=== PATIENT | female | born 1980 | race Caucasian/White ===

== ENCOUNTER → 2019-08-15 13:41 | Outpatient (CLI) | payer OTHER, SELFPAY ==
--- NOTE | 2019-08-15 13:44 | DI.CT.S_ITS ---
PROCEDURE: CT ABDOMEN PELVIS W CON INDICATIONS: Eval persistent RLQ pain w/R leg nerve pain TECHNIQUE: After the administration of oral and intravenous contrast, 5 mm thick sections acquired from the diaphragms to the symphysis. 5 mm thick coronal and sagittal reformats were performed. For radiation dose reduction, the following was used: automated exposure control, adjustment of mA and/or kV according to patient size. COMPARISON: None. FINDINGS: Image quality: Excellent. ABDOMEN: Lung bases: Lung bases are clear. Heart size is normal. Solid organs: Liver is normal in size and enhancement. Gallbladder is within normal limits. Biliary system is non-dilated. Pancreas enhances normally. Spleen is normal in size and enhancement. No adrenal nodules. Scarring within the left interpolar kidney posteriorly is present. Kidneys are otherwise normal in size and enhancement, without hydronephrosis. Peritoneum and bowel: Stomach, small bowel, and colon loops are normal in caliber and wall thickness. No free fluid or air. Right lower quadrant surgical clips are present, presumably reflecting appendectomy clips. Nodes and vessels: No retroperitoneal or mesenteric adenopathy. Aorta and inferior vena cava are normal in caliber. Miscellaneous: No ventral hernias. PELVIS: Genitourinary: Bladder wall thickness is normal. 33 mm left adnexal cyst. Miscellaneous: No inguinal hernias or adenopathy. Bones: No suspicious bony lesions. No vertebral body compression fractures. IMPRESSION: 1. No explanation for right lower quadrant nor right lower extremity pain. 2. No acute process. 3. Left renal scarring. Dictated by: Reji Ward M.D. on 08/15/2019 at 15:02 Approved by: Reji Ward M.D. on 08/15/2019 at 15:04
[2019-08-15 14:22] LABS: Estimated Glomerular Filt Rate > 60.0 mL/min (>60)
== END ==
PROVIDERS: Family Provider Obstetrics & Gynecology; PCP Obstetrics & Gynecology; Visit Provider Obstetrics & Gynecology
DX: R10.31 Right lower quadrant pain (principal); M79.2 Neuralgia and neuritis, unspecified; N94.89 Other specified conditions associated with female genital organs and menstrual cycle; Z87.42 Personal history of other diseases of the female genital tract
CPT/HCPCS: 36415; 74177; 82565

== ENCOUNTER 2019-08-22 06:07 | Day surgery (SDC) | payer OTHER, SELFPAY ==
[2019-08-21 11:33] VITALS: BMI 23.5
[2019-08-22] VITALS (9 sets, daily range): BP systolic 105–133; BP diastolic 61–86; PULSE 61–81; RESP 11–16; TEMP 36.1–36.7; O2SAT 96–100; BMI 23.0
[2019-08-22] MEDS: LACTATED RINGERS 1,000 ML 42 ML IV (07:29)
--- NOTE | 2019-08-22 07:52 | PM.HP.1 ---
History of Present Illness History of Present Illness Date Patient Seen: 08/22/19 Time Patient Seen: 07:52 Chief complaint: [id number] PELVIC Narrative: Patient is a 39-year-old 2 para 2 with persistent right lower quadrant pain here for a diagnostic laparoscopy Patient History Surgical History (Updated 08/21/19 @ 11:39 by Sneha Zarate RN) History of colonoscopy (Acute) History of third molar tooth extraction Hx of appendectomy (Acute) Hx of umbilical hernia repair (Acute) Status post appendectomy Status post dilation and curettage (08/23/15) Status post hernia repair Status post loop electrosurgical excision procedure (LEEP) of cervix (12/20/15) Social History (Updated 03/17/18 @ 21:36 by Lili Rucker) household members: spouse Smoking Status: Never smoker alcohol intake: current substance use type: does not use Family & Social History Social History: household members spouse Tobacco & Substance use: Smoking Status Never smoker alcohol intake current alcohol intake frequency holiday/special occasion Meds Home Medications and Allergies Home Medications Medication Instructions Recorded Confirmed Type levonorgestrel-ethinyl estradiol 1 tab PO DAILY #84 tab 06/17/19 08/06/19 Rx 0.1 mg-20 mcg tablet hydrocodone 5 mg-acetaminophen 325 1 tab PO Q4-6H PRN #20 tab 07/31/19 08/22/19 Rx mg tablet Allergies Allergy/AdvReac Type Severity Reaction Status Date / Time sulfamethoxazole Allergy Unknown HIVES, Verified 08/22/19 07:06 [From BACTRIM] JOINT PAIN trimethoprim [From BACTRIM] Allergy Unknown HIVES, Verified 08/22/19 07:06 JOINT PAIN Exam Vital Signs (past 8 hours): - 08/22/19 07:07 Temperature 98.1 F Pulse Rate 81 Respiratory Rate 15 Blood Pressure 133/86 Pulse Oximetry 100 Oxygen Delivery Method Room Air Narrative Exam Narrative: HEENT: No thyromegaly, no anterior cervical or supraclavicular lymphadenopathy. Lungs:Clear to auscultation bilaterally, no wheezes. Cardiovascular: Regular rate and rhythm, no murmurs, rubs, or gallops. Abdomen: Well-healed laparoscopy scars. No hepatosplenomegaly. No masses palpable. External genitalia: Normal Vagina: Normal Cervix: Normal Bimanual exam: 7 Week size uterus. Mobile. Rectal: No masses. Assessment & Plan Assessment & Plan narrative: Assessment: 39-year-old 2 para 2 with persistent right lower quadrant pain Plan: Diagnostic laparoscopy with possible lysis of adhesions, fulguration of endometriosis, or removal of ovarian cysts The risks, benefits, and alternatives to the procedure were explained to the patient. The risks including bleeding, infection, injury to the bowel, bladder, or ureters. She understands these risks and agrees to proceed. A full par Q was held and consent form was signed. Time Spent With Patient Time with patient: 15-24 minutes
--- NOTE | 2019-08-22 07:54 | PM.PREOP ---
Pre-operative Note Interval Note History & Physical reviewed/Exam performed by Physician: Yes Changes to H&P: No
--- NOTE | 2019-08-22 08:18 | SUR.OPER ---
Lithotomy on padded OR bed. Torreon Pad Positioner under torso. Head on pillow, arms padded and tucked at sides. Legs secured in padded yellow fins stirrups.
[2019-08-22] MEDS: BUPIVACAINE 0.5% W/ EPI (PF) VIAL 30 ML INJ (08:24)
[2019-08-22] MEDS: fentaNYL 100 MCG/2 ML INJ 50 MCG IV ×2 (08:56→09:07)
[2019-08-22] MEDS: HYDROMORPHONE 2 MG INJ 0.5 MG IV ×4 (08:57→09:24)
[2019-08-22] MEDS: OXYCODONE/ACETAMINOPHEN 5/325 TABLET 1 TAB PO ×2 (09:26→09:58)
[2019-08-22] MEDS: ONDANSETRON 4 MG ODT SL (10:16)
--- NOTE | 2019-08-22 10:20 | SUR.PHASEII ---
1005 Pt. up and dressed, ambulated with assistance, c/o feeling light-headed and nauseated. Sitting in wheelchair ready to go home. Order for oral Rx for nausea obtained. No emesis
--- NOTE | 2019-08-22 10:22 | SUR.PHASEII ---
1018 Rx given prior to discharge, no emesis. Has a sister who is a trauma RN at home who will be there to help post-op and another sister who is a local doctor.
--- NOTE | 2019-08-25 06:02 | P.OP_ITS ---
Operative Date/Time/Diagnoses Date of procedure: 08/22/19 Time of procedure: 09:00 Pre-op diagnosis: Persistent right pelvic pain Post-op diagnosis: same Procedure & Clinicians Procedure: Procedures Operation Date: 08/22/19 07:45 Actual Procedures Side Surgeon p Laparoscopy, Diagnostic, LUNCH WAGON OPERATOR w/Lysis of adhesions Katheryn Cantrell MD Indications: Persistent right pelvic pain Surgeon: Katheryn Cantrell Infection Control Preventionist: Stephany Noland Anesthesia Type: General Operative Notes Findings: 2 cm simple cyst on the left ovary Adhesions in the right lower quadrant Mild pelvic congestion Closure Type: primary Specimen(s): none Applied: catheter (In and out) Estimated blood loss (mL): 5 Blood products transfused: none Procedure in detail: After informed consent was obtained, the patient was taken to the operating room where she was placed in the dorsal supine position. After adequate general endotracheal anesthesia was achieved, she was placed in the dorsal lithotomy position, and prepped and draped in the usual sterile fashion. A bivalve speculum was placed into the vagina and the anterior lip of the cervix grasped with a single-tooth tenaculum. The cervical os was sequentially dilated until the Zumi uterine manipulator could pass easily into the endometrial cavity. The single-tooth tenaculum was removed from the anterior lip of the cervix. The bivalve speculum was removed from the vagina. Attention was then turned to the abdomen where 6 cc of 0.5% Marcaine with epinephrine were injected in the umbilical fold. A 5 mm incision was made. The Veress needle was placed into the peritoneal cavity, and its placement confirmed by aspiration and drop test. The abdominal cavity was insufflated with 3.4 L of CO2. The Veress needle was removed, and a 5 mm trocar was placed without difficulty. 2 other incisions were made 1 of them just above the pubic symphysis and the other midway between the pubic symphysis and umbilicus on the left side. These were made after 6 cc of 0.5% Marcaine with epinephrine were injected. 2 5 mm trocars were placed under direct visualization. The probe was used to identify both ovaries. The right ovary was normal. The right tube was normal. The left ovary had a 2 cm cyst. The left tube was normal. In the right lower quadrant near where the appendix would be there were adhesions. These were taken down with the Endo anna. Hemostasis was achieved. On the left ovary the point aspirated her was placed into the cyst and the cyst was removed without difficulty. Using the Endo Anna, the cyst wall and surface of the ovary were cauterized for hemostasis. The liver and gallbladder were found to be normal. There was some mild pelvic congestion posteriorly behind the uterus. The instruments were removed from the abdomen. The CO2 was allowed to escape. The trocars were removed. The incisions were repaired with 4 0 Biosyn in a subcuticular fashion. Steri-Strips, 2 x 2, and op site were placed. The Zumi uterine manipulator was removed from the uterus. Sponge, lap, and instrument counts were correct x2. The patient tolerated the procedure well, and was taken to PACU in stable condition. Complications: none Post-operative Condition: stable Disposition: PACU Plan for aftercare: Home after recovery
== END 2019-08-22 10:18 | disposition home or self-care (01) ==
PROVIDERS: Family Provider Obstetrics & Gynecology; PCP Family Medicine; Visit Provider Obstetrics & Gynecology
PROC: (CPT 49320; principal; 2019-08-22 07:45)
DX: N83.292 Other ovarian cyst, left side (principal); N73.6 Female pelvic peritoneal adhesions (postinfective); N94.89 Other specified conditions associated with female genital organs and menstrual cycle
CPT/HCPCS: 58662; J0330; J1100; J1170; J2250; J2405; J2704; J3010

== ENCOUNTER → 2024-09-23 10:38 | Outpatient (CLI) | payer BC, SELFPAY ==
--- NOTE | 2024-09-23 10:47 | DI.RAD.S_ITS ---
PROCEDURE: XR ANKLE RT MIN 3V INDICATIONS: ANKLE PAIN TECHNIQUE: 3 views of the ankle were acquired. COMPARISON: None. FINDINGS: Bones: There are no osseous abnormalities. Tibiotalar and talocalcaneal joints: Normal in width and alignment without arthritic change. Soft tissues: No soft tissue swelling, calcification or mass. IMPRESSION: Normal ankle Dictated by: Herberth Vega M.D. on 09/24/2024 at 15:32 Approved by: Herberth Vega M.D. on 09/24/2024 at 15:32
== END ==
PROVIDERS: Family Provider Obstetrics & Gynecology; PCP Family Medicine; Referring Provider Family Medicine; Visit Provider Family Medicine
DX: M25.571 Pain in right ankle and joints of right foot (principal)
CPT/HCPCS: 73610

== ENCOUNTER 2025-03-09 10:17 | Emergency (ER) | payer BC, SELFPAY ==
[2025-03-09] VITALS (10 sets, daily range): BP systolic 106–152; BP diastolic 72–87; PULSE 54–72; RESP 12–18; TEMP 36.6; O2SAT 98–100; BMI 25.8
--- NOTE | 2025-03-09 10:31 | EKG_ITS ---
[address] [address] [address], [place] [address] Test Date: 2025-03-09 Pat Name: Rowena Naidu Department: Room: Gender: Female Editorial Assistant: PATRICIA : 1980 Requested By: Order Number: [id number] Reading MD: Herberth Peña MD Measurements Intervals [place] Rate: 59 P: 74 [place]: 168 QRS: 50 QRSD: 90 T: 11 QT: 442 QTc: 437 Interpretive Statements Sinus bradycardia Electronically Signed On 03-09-2025 11:43:29 PDT by Herberth Peña MD
--- NOTE | 2025-03-09 10:31 | DI.RAD.S_ITS ---
PROCEDURE: XR CHEST 1V INDICATIONS: chest pain TECHNIQUE: One view of the chest was acquired. COMPARISON: None. FINDINGS: Surgical changes and devices: None. Lungs and pleura: Lungs are clear. No pleural effusions or pneumothorax. Mediastinum: Mediastinal contours appear normal. Heart size is normal. Bones and chest wall: No suspicious bony lesions. Overlying soft tissues appear unremarkable. IMPRESSION: No acute cardiopulmonary abnormality is seen. Dictated by: Joseluis Rader M.D. on 03/09/2025 at 11:15 Approved by: Joseluis Rader M.D. on 03/09/2025 at 11:15
[2025-03-09] MEDS: ASPIRIN 81 MG CHEW TAB 324 MG PO (10:35)
[2025-03-09 11:01] LABS: Add Manual Diff / Slide Review NO; Basophils Absolute Auto 100 /uL (0-100); Basophils Percent Auto 1.1 % (0-2); Eosinophils Absolute Auto 100 /uL (0-450); Eosinophils Percent Auto 2.4 % (2-4); Hematocrit 39.1 % (36-46); Hemoglobin 13.2 g/dL (12.0-16.0); Lymphocytes Absolute Auto 1400 /uL (1100-4500); Lymphocytes Percent Auto 27.7 % (25-40); Mean Corpuscular HGB Conc 33.9 % (30-36); Mean Corpuscular Hemoglobin 28.8 PG (26-34); Monocytes Absolute Auto 400 /uL (0-900); Monocytes Percent Auto 8.7 % (3-14); Neutrophils Absolute Auto 3000 /uL (1500-7000); Neutrophils Percent Auto 60.1 % (50-75); Platelet Count 301 X10^3/uL (150-400); Red Blood Cell Count 4.59 X10^6/uL (4.0-5.2); Red Cell Distribution Width 13.1 % (11.6-14.8)
[2025-03-09 11:04] LABS: Prothrombin Time 11.2 SECONDS (9.4-12.5)
--- NOTE | 2025-03-09 11:04 | PC.NURSE ---
PT works as a supervising chef in a kitchen and experienced central chest pain radiating to left chest. She lifts a lot of heavy pots and pans at work, labor intensive. She was trying to ignore her pain and decided to come in today. Pt not eating PO food due to not feeling hungry the past couple of days. Tolerates PO water. She has SOB worse with exertion. no dizziness.
[2025-03-09 11:06] LABS: PTT Partial Thromboplastin Tim 36 SECONDS (25.1-36.5)
[2025-03-09 11:09] LABS: Alanine Aminotransferase 17 IU/L (<35); Albumin 4.9 g/dL (3.5-5.0); Albumin Globulin Ratio 1.7 (1.0-2.8); Alkaline Phosphatase 70 U/L (38-126); Aspartate Aminotransferase 25 IU/L (14-36); BUN Creatinine Ratio 16.4 (6-22); Bilirubin Total 0.8 mg/dL (0.2-1.3); Blood Urea Nitrogen 12 mg/dL (7-17); Calcium 9.3 mg/dL (8.4-10.2); Carbon Dioxide 24 mmol/L (22-32); Chloride 105 mmol/L (98-107); Creatine Kinase 76 U/L (30-135); Estimated Glomerular Filt Rate > 60 mL/min (>60); Globulin 2.9 g/dL (1.7-4.1); Glucose 92 mg/dL (70-100); HEMOLYSIS < 15 (0-50); Lipase 62 U/L (23-300); Magnesium 2.2 mg/dL (1.6-2.3); Potassium 4.2 mmol/L (3.4-5.1); Sodium 138 mmol/L (137-145); Total Protein 7.8 g/dL (6.3-8.2)
[2025-03-09 11:20] LABS: NT-proBNP (BNP-Adult 18+) 68 pg/mL (<125); Troponin I < 0.012 ng/mL (0.01-0.034)
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
[2025-03-09] MEDS: KETOROLAC 30 MG/ML VIAL 15 MG IV (12:25)
[2025-03-09 12:33] LABS: D Dimer 260 ng/ml (<500)
--- NOTE | 2025-03-09 12:44 | EKG_ITS ---
[facility] [address], [place] [address] Test Date: 2025-03-09 Pat Name: Rowena Naidu Department: [facility] Room: Gender: Female Assistant Site Manager: ADAMARIS : 1980 Requested By: Order Number: [id number] Reading MD: Herberth Peña MD Measurements Intervals [place] Rate: 52 P: 66 [place]: 168 QRS: 49 QRSD: 98 T: 23 QT: 460 QTc: 427 Interpretive Statements Sinus bradycardia Electronically Signed On 03-09-2025 16:53:23 PDT by Herberth Peña MD
[2025-03-09 13:17] LABS: Troponin I < 0.012 ng/mL (0.01-0.034)
== END 2025-03-09 14:00 | disposition home or self-care (01) ==
PROVIDERS: Emergency Provider Emergency Medicine; Family Provider Obstetrics & Gynecology; PCP Family Medicine
DX: R07.89 Other chest pain (principal); R00.1 Bradycardia, unspecified; Z82.49 Family history of ischemic heart disease and other diseases of the circulatory system
CPT/HCPCS: 36415; 71045; 80053; 82550; 83690; 83735; 83880; 84484; 85025; 85379; 85610; 85730; 93005; 93010; 96374; 99284; J1885